=== PATIENT | male | born 1940 | race Caucasian/White ===

== ENCOUNTER → 2023-06-07 07:55 | Outpatient (REF) | payer MEDICARE, OTHER, SELFPAY ==
[2023-06-07 09:32] LABS: % Basophils 0.5 % (0-2); % Eosinophils 2.4 % (0-6); % Immature Granulocytes 0.5 % (0-0.5); % Lymphocytes 32.3 % (20.5-51.1); % Monocytes 10.3 % (1.7-9.3); Absolute Eosinophils 0.2 10^3/uL (0-0.7); Absolute Lymphocytes 2.4 10^3/uL (1.2-3.4); Absolute Monocytes 0.8 10^3/uL (0.1-0.6); Hematocrit 36.1 % (39.0-52.0); Hemoglobin 11.7 g/dL (13.0-18.0); Mean Corp Hgb Conc. 32.4 g/dL (33.0-37.0); Mean Corpuscular Hgb 32.2 pg (27.0-31.0); Mean Corpuscular Volume 99.4 fL (80.0-94.0); Mean Platelet Volume 11.3 fL (7.4-10.4); Nucleated Red Blood Cells % 0 % (-); Platelet Count 176 10^3/uL (130-400); Red Blood Cell Count 3.63 10^6/uL (4.70-6.10); Red Cell Dist. Width 14.6 % (11.5-14.5); White Blood Cell Count 7.4 10^3/uL (4.8-10.8)
[2023-06-07 09:58] LABS: ALT (SGPT) 16 U/L (0-50); AST (SGOT) 21 U/L (17-59); Albumin 4.2 g/dl (3.5-5.0); Alkaline Phosphatase 95 U/L (38-126); Blood Urea Nitrogen 24 mg/dl (9-20); Calcium 9.8 mg/dl (8.4-10.2); Carbon Dioxide 21 mmol/L (22-30); Chloride 104 mmol/L (98-107); Glucose 115 mg/dl (70-99); Potassium 4.4 mmol/L (3.5-5.1); Sodium 138 mmol/L (135-145); Total Bilirubin 0.6 mg/dl (0.2-1.3); Total Cholesterol 158 mg/dl (50-199); Total Protein 6.3 g/dl (6.3-8.2); Triglyceride 153 mg/dl (10-149); Very Low Density Lipoprotein 30 mg/dl (0-30); eGFR > 60.00
[2023-06-07 10:13] LABS: Erythrocyte Sed Rate 18 mm/hour (0-20)
[2023-06-07 10:14] LABS: C-Reactive Protein < 5.00 mg/L (0.0-10.00)
[2023-06-07 10:36] LABS: HDL Cholesterol 74 mg/dl; LDL Cholesterol, Calculated 54 mg/dl
[2023-06-08 19:13] LABS: Hepatitis B Surface Antigen Negative (Negative)
[2023-06-08 19:30] LABS: Hepatitis B Core Ab, Total Negative (Negative); Hepatitis C Antibody Negative (Negative)
[2023-06-10 02:59] LABS: Quantiferon Mitogen minus NIL >10.00 IU/mL; Quantiferon NIL 0.04 IU/mL; Quantiferon Plus TB2 minus NIL 0.01 IU/mL (0.00-0.34); Quantiferon TB Gold Plus Negative (Negative)
== END ==
LOC: REG 07:55
PROVIDERS: ATTENDING PHYSICIAN Internal Medicine; FAMILY PHYSICIAN Internal Medicine
DX: E78.5 Hyperlipidemia, unspecified (principal); K75.9 Inflammatory liver disease, unspecified; M25.551 Pain in right hip; M25.552 Pain in left hip; M35.3 Polymyalgia rheumatica; M48.061 Spinal stenosis, lumbar region without neurogenic claudication; M76.899 Other specified enthesopathies of unspecified lower limb, excluding foot; R70.0 Elevated erythrocyte sedimentation rate; Z22.7 Latent tuberculosis
CPT/HCPCS: 36415; 80053; 80061; 85025; 85652; 86140; 86480; 86704; 86803; 87340

== ENCOUNTER → 2023-07-19 20:05 | Outpatient (REF) | payer MEDICARE, OTHER, SELFPAY | LOC: MRI 20:05 | PROVIDERS: ATTENDING PHYSICIAN Specialist | DX: M54.16 Radiculopathy, lumbar region (principal) | CPT/HCPCS: 72148 ==

== ENCOUNTER → 2023-11-22 11:22 | Outpatient (REF) | payer MEDICARE, OTHER, SELFPAY | LOC: RAD 11:22 | PROVIDERS: ATTENDING PHYSICIAN Registered Nurse Neuroscience; FAMILY PHYSICIAN Internal Medicine | DX: M54.9 Dorsalgia, unspecified (principal) | CPT/HCPCS: 72100 ==

== ENCOUNTER → 2024-01-12 08:20 | Outpatient (REF) | payer MEDICARE, OTHER, SELFPAY ==
[2024-01-12 09:21] LABS: % Basophils 0.5 % (0-2); % Eosinophils 2.2 % (0-6); % Immature Granulocytes 0.5 % (0-0.5); % Lymphocytes 34.8 % (20.5-51.1); % Monocytes 7.5 % (1.7-9.3); % Neutrophils 54.5 % (42.2-75.2); Absolute Eosinophils 0.2 10^3/uL (0-0.7); Absolute Lymphocytes 2.8 10^3/uL (1.2-3.4); Absolute Monocytes 0.6 10^3/uL (0.1-0.6); Absolute Neutrophils 4.3 10^3/uL (1.4-6.5); Hematocrit 39.6 % (39.0-52.0); Hemoglobin 12.6 g/dL (13.0-18.0); Mean Corp Hgb Conc. 31.8 g/dL (33.0-37.0); Mean Corpuscular Volume 97.5 fL (80.0-94.0); Mean Platelet Volume 10.4 fL (7.4-10.4); Nucleated Red Blood Cells % 0 % (-); Platelet Count 230 10^3/uL (130-400); Red Blood Cell Count 4.06 10^6/uL (4.70-6.10); Red Cell Dist. Width 13.2 % (11.5-14.5); White Blood Cell Count 7.9 10^3/uL (4.8-10.8)
[2024-01-12 09:46] LABS: ALT (SGPT) 17 U/L (0-50); AST (SGOT) 20 U/L (17-59); Albumin 4.1 g/dl (3.5-5.0); Alkaline Phosphatase 121 U/L (38-126); Blood Urea Nitrogen 24 mg/dl (9-20); Calcium 9.4 mg/dl (8.4-10.2); Carbon Dioxide 26 mmol/L (22-30); Chloride 104 mmol/L (98-107); Creatine Phosphokinase 57 U/L (55-170); Glucose 126 mg/dl (70-99); HDL Cholesterol 63 mg/dl; LDL Cholesterol, Calculated 82 mg/dl; Potassium 5.1 mmol/L (3.5-5.1); Sodium 141 mmol/L (135-145); Total Bilirubin 0.3 mg/dl (0.2-1.3); Total Cholesterol 170 mg/dl (50-199); Total Protein 6.5 g/dl (6.3-8.2); Triglyceride 127 mg/dl (10-149); Very Low Density Lipoprotein 25 mg/dl (0-30); eGFR > 60.00
[2024-01-12 10:21] LABS: PSA, Total - Screen 6.25 ng/ml (0.0-4.0); TSH Reflex To Free T4 2.72 uIU/ml (0.47-4.68)
[2024-01-12 10:51] LABS: Erythrocyte Sed Rate 21 mm/hour (0-20)
[2024-01-12 11:46] LABS: Glycohemoglobin (HgbA1c) 6.6 % (4.0-5.6)
== END ==
LOC: REG 08:20
PROVIDERS: ATTENDING PHYSICIAN Physician Assistant Surgical; FAMILY PHYSICIAN Internal Medicine
DX: M25.552 Pain in left hip (principal); R97.20 Elevated prostate specific antigen [PSA]; I10 Essential (primary) hypertension; E03.9 Hypothyroidism, unspecified; E78.2 Mixed hyperlipidemia; R73.03 Prediabetes; Z12.5 Encounter for screening for malignant neoplasm of prostate
CPT/HCPCS: 36415; 80053; 80061; 82550; 83036; 84443; 85025; 85652; 86140; G0103

== ENCOUNTER → 2024-01-22 07:41 | Outpatient (REF) | payer MEDICARE, OTHER, SELFPAY | LOC: EMG 07:41 | PROVIDERS: ATTENDING PHYSICIAN Physician Assistant Surgical; FAMILY PHYSICIAN Internal Medicine | DX: M25.551 Pain in right hip (principal); M25.552 Pain in left hip; R20.0 Anesthesia of skin | CPT/HCPCS: 95886; 95910 ==

== ENCOUNTER → 2024-02-27 08:55 | Outpatient (REF) | payer MEDICARE, OTHER, SELFPAY ==
[2024-02-29 13:31] LABS: Lyme Antibody Screen, EIA Negative (Negative)
[2024-03-01 05:17] LABS: Albumin 3.84 g/dL (3.75-5.01); Alpha 1 Globulin 0.33 g/dL (0.19-0.46); Alpha 2 Globulin 0.95 g/dL (0.48-1.05); SPEP IFE Reflex Not Done; Total Protein-Electrophoresis 6.5 g/dL (6.3-8.2)
== END ==
LOC: REG 08:55
PROVIDERS: ATTENDING PHYSICIAN Psychiatry & Neurology Neurology; FAMILY PHYSICIAN Internal Medicine
DX: R41.3 Other amnesia (principal)
CPT/HCPCS: 36415; 84155; 84165; 86618

== ENCOUNTER 2024-05-23 10:37 | Inpatient (IN) | payer MEDICARE, OTHER, SELFPAY ==
[2024-04-30 11:08] LABS: Hematocrit 36.7 % (39.0-52.0); Mean Corp Hgb Conc. 32.7 g/dL (33.0-37.0); Mean Corpuscular Hgb 31.7 pg (27.0-31.0); Mean Corpuscular Volume 97.1 fL (80.0-94.0); Mean Platelet Volume 10.7 fL (7.4-10.4); Platelet Count 267 10^3/uL (130-400); Red Blood Cell Count 3.78 10^6/uL (4.70-6.10); White Blood Cell Count 7.8 10^3/uL (4.8-10.8)
[2024-04-30 11:51] LABS: Glycohemoglobin (HgbA1c) 6.6 % (4.0-5.6)
[2024-04-30 11:59] LABS: ALT (SGPT) 30 U/L (0-50); AST (SGOT) 21 U/L (17-59); Albumin 4.4 g/dl (3.5-5.0); Alkaline Phosphatase 126 U/L (38-126); Blood Urea Nitrogen 30 mg/dl (9-20); Calcium 9.7 mg/dl (8.4-10.2); Carbon Dioxide 21 mmol/L (22-30); Chloride 107 mmol/L (98-107); Glucose 132 mg/dl (70-99); Potassium 4.5 mmol/L (3.5-5.1); Sodium 139 mmol/L (135-145); Total Bilirubin 0.6 mg/dl (0.2-1.3); Total Protein 6.6 g/dl (6.3-8.2); eGFR > 60.00
[2024-04-30 13:27] LABS: Iron 73 ug/dl (49-181)
[2024-04-30 13:37] LABS: Percent Saturation 25 % (20-50); Total Iron Binding Capacity 284 ug/dl (261-462)
[2024-04-30 14:22] VITALS: BMI 22.8
[2024-04-30 14:34] LABS: Folate 17.1 ng/ml (2.76-20); Vitamin B12 383 pg/ml (239-931)
[2024-04-30 17:08] VITALS: BMI 22.8
[2024-05-01 11:00] LABS: Ferritin 37.3 ng/ml (17.9-464.0)
[2024-05-23] VITALS (17 sets, daily range): BP systolic 103–137; BP diastolic 44–80; BMI 22.8; BMI 24.8
[2024-05-23] MEDS: CELEBREX 200 MG PO (11:26)
[2024-05-23] MEDS: NORMOSOL-R/PLASMALYTE-A 1000 IV ×2 (11:26→16:30)
[2024-05-23] MEDS: TYLENOL 650 MG PO ×3 (11:26→22:24)
--- NOTE | 2024-05-23 14:12 | W.DS.TRANS ---
DC Summary - Clinical Unit Educator
-
Discharge Instructions:
Discharge Diagnosis/Procedures R KEATON 05/23/24
Diet As tolerated,Diabetic, Carb Controlled
Activity With Walker
Driving Restrictions No driving
Bathing Restrictions OK to Shower
Other Services PT,VN,OT
Instructions:
Stand-Alone Forms: Total Hip/Knee Replacement D/C
Changes to Home Medications: Yes
Discharge Medications:
DC Medications w/original date entered in [facility]
amlodipine 10 mg tablet 10 mg PO DAILY 09/06/12
levothyroxine 125 mcg tablet 125 mcg PO DAILY 09/06/12
losartan 100 mg tablet (Cozaar) 100 mg PO DAILY 09/06/12
bupropion HCl 150 mg tablet,12 hr sustained-release 450 mg PO DAILY 12/14/20
methylphenidate HCl 10 mg tablet 60 mg PO DAILY 12/14/20
tamsulosin 0.4 mg capsule 0.4 mg PO HS #3 caps 12/17/20
polyethylene glycol 3350 17 gram oral powder packet (Miralax) 17 g PO DAILY 04/29/24
pregabalin 100 mg capsule (Lyrica) 100 mg PO DAILY 04/29/24
vit C 250 mg-vit E 90 mg-zinc 40 mg-copper 1 [id number] capsule (PreserVision AREDS-2) 1 tab PO BID 04/29/24
Vitamin D3 1 dose PO DAILY 04/30/24
mupirocin 2 % topical ointment 1 applic intranasal BID #1 tube 04/30/24
acetaminophen 500 mg tablet (Tylenol Extra Strength) 1,000 mg (2 x 500 mg) PO QID #0 tabs 05/23/24
aspirin 325 mg tablet 325 mg PO DAILY blood clot prevention #1 tab 05/23/24
docusate sodium 100 mg capsule (Colace) 100 mg PO BID stool softner #1 cap 05/23/24
famotidine 20 mg tablet 20 mg PO HS GI prophylaxis #30 tabs 05/23/24
gabapentin 300 mg capsule 300 mg PO HS sleep/pain #10 caps 05/23/24
magnesium hydroxide 400 mg/5 mL oral suspension (Milk of Magnesia) 30 ml PO HS PRN Constipation #1 mL 05/23/24
melatonin 1 mg tablet 1 mg PO HS PRN sleep 05/23/24
meloxicam 15 mg tablet 15 mg PO DAILY anti-inflammatory #14 tabs 05/23/24
ondansetron 4 mg disintegrating tablet 4 mg PO Q6H PRN n/v #20 tabs 05/23/24
sennosides 8.6 mg tablet (Senokot) 17.2 mg (2 x 8.6 mg) PO BID laxative #2 tabs 05/23/24
tramadol 50 mg tablet 50 mg PO Q6H PRN 1 tab moderate pain, 2 if severe #30 tabs 05/23/24
Home Medication Changes
mupirocin 2 % topical ointment 1 applic intranasal BID #1 tube 04/30/24
acetaminophen 500 mg tablet (Tylenol Extra Strength) 1,000 mg (2 x 500 mg) PO QID #0 tabs 05/23/24
aspirin 325 mg tablet 325 mg PO DAILY blood clot prevention #1 tab 05/23/24
docusate sodium 100 mg capsule (Colace) 100 mg PO BID stool softner #1 cap 05/23/24
famotidine 20 mg tablet 20 mg PO HS GI prophylaxis #30 tabs 05/23/24
gabapentin 300 mg capsule 300 mg PO HS sleep/pain #10 caps 05/23/24
magnesium hydroxide 400 mg/5 mL oral suspension (Milk of Magnesia) 30 ml PO HS PRN Constipation #1 mL 05/23/24
melatonin 1 mg tablet 1 mg PO HS PRN sleep 05/23/24
meloxicam 15 mg tablet 15 mg PO DAILY anti-inflammatory #14 tabs 05/23/24
ondansetron 4 mg disintegrating tablet 4 mg PO Q6H PRN n/v #20 tabs 05/23/24
sennosides 8.6 mg tablet (Senokot) 17.2 mg (2 x 8.6 mg) PO BID laxative #2 tabs 05/23/24
tramadol 50 mg tablet 50 mg PO Q6H PRN 1 tab moderate pain, 2 if severe #30 tabs 05/23/24
Pending Results: No
[2024-05-23] MEDS: DILAUDID 0.5 MG IV (15:52)
--- NOTE | 2024-05-23 16:04 | OR.RPT ---
Operative Report
Operative Report
Orthopaedic Surgery Operative Note
DATE OF OPERATION: 05/23/2024
PREOPERATIVE DIAGNOSES: Right hip osteoarthritis, right lateral thigh hematoma
POSTOPERATIVE DIAGNOSES: Same
OPERATION PERFORMED: Right total hip arthroplasty; right lateral thigh hematoma evacuation with debridement and irrigation
SURGEON: Feliciano Fallon MD
HOME CARE PROVIDER: Shen Sanchez PA-C who helped with patient and limb positioning and retraction
ANESTHESIA: Spinal
COMPLICATIONS: None.
ESTIMATED BLOOD LOSS: 50 mL.
DRAINS: None
SPECIMEN: x1 pathology
FINDINGS: Full thickness degenerative changes to the femoral head, hematoma between subcutaneous skin and ITB with pseudocapsule
IMPLANTS:
Minal Trilogy Acetabular Shell, cluster hole, size 52
Minal Trilogy Highly Crosslinked PE Liner, neutral
Minal Heritage stem, size 13 with extended offset with distal centralizer
DJO bone cement; small cement restrictor
Biolox Ceramic Head, size 36mm -3.5mm
INDICATIONS: The patient presented to my office with debilitating right hip pain due to osteoarthritis. We reviewed the natural history of this problem, as well as the risks, benefits, and alternatives of various treatment options. The patient
exhausted all nonoperative treatment options and wished to proceed with hip replacement surgery. The patient understood the risks which included, but were not limited to, bleeding, infection, failure to relieve pain, more pain than preop, damage to
blood vessels and nerves, need for reoperation, mechanical failure of the implants, wound healing problems, stiffness, instability, blood clot, pulmonary embolism, myocardial infarction, pneumonia, arrhythmia, CVA, and . The patient accepted
these risks and wished to proceed. All questions were answered, and informed consent was obtained. Prior the surgery, the patient had a fall and was noted to have hematoma about lateral thigh. It failed to resolves spontaneously, so we discussed
evaucation since it was overlying the surgical incision site.
PROCEDURE IN DETAIL: The patient was identified in the preoperative holding area. The right hip was identified as the operative site. The patient was taken in the operating room and transferred to the operative table. Spinal anesthesia was
performed. IV antibiotics and tranexamic acid were administered. The patient was placed in the lateral position with Stulberg hip positioners. Axillary roll was placed. The down leg was well padded. All bony prominences were well padded. The
operative limb was prepped and draped in the usual sterile fashion.
Time out was performed. The hematoma site was marked circumferentially which was about 10cm ovoid shape overlying the greater trochanter. A posterolateral approach to the hip was used. The skin incision was centered over the greater trochanter. This
was taken down sharply through subcutaneous tissues. Meticulous hemostasis was achieved throughout the case with electrocautery. Low viscocity serosang fluid was encountered. Pseudocapsule was noted about the hematoma, and this was excised with a
anderson scissors after dissecting from underlying ITB and subcutaneous fat. This was excisional debridement with anderson scissors. A specimen was sent for pathology. We split the fascia walter in line with skin incision. I split the gluteus david bluntly.
We cauterized all crossing vessels as we split it. I palpated the sciatic nerve and made sure it was well posterior in the operative field. It was protected throughout the case.
I performed a partial bursectomy to identify the short external rotators. The gluteus medius and minimus were identified and retracted anteriorly. I incised the piriformis tendon and conjoint tendon at their insertions. These were tagged for later
repair. I then performed a trapezoidal capsulotomy. The edges were tagged for later repair. I referenced the cut edge of the capsular flap to 2 fixed points on the greater trochanter for assistance with recreation of limb length and offset. I then
dislocated the hip posteriorly. I performed a femoral neck osteotomy approximately 5mm above the lesser trochanter, as per preoperative templating. The femoral head measured 57 mm in outer diameter. The distance between the neck cut and the center
of the femoral head was measured to be 30mm. I placed a curve hohmann retractor over the anterior lip of the acetabulum between the labrum and the anterior hip capsule. A second retractor was placed inferiorly just distal to the transverse
acetabular ligament. Circumferential view of the acetabulum was achieved. I incised the labrum and pulvinar with electrocautery. I started with a 47mm reamer and reamed down to the medial wall. I then sequentially reamed up to a 51mm reamer. This
gave a nice bed of bleeding bone with excellent column support anteriorly and posteriorly. I impacted the acetabular shell in approximately 40 degrees of abduction and 20 degrees of anteversion. I matched the anteversion of the transverse acetabular
ligament. I also made sure that the anterior rim of the socket was not proud of the anterior wall to minimize the chance of iliopsoas tendinitis. I confirmed the cup was well-seated. I then impacted a neutral liner and confirmed it was well seated
with the locking mechanism.
Attention was turned to the femur. Box osteotome and Charnley awe were used to open the canal. The femur was sequentially broached to size 13 which had appropriate fit and fill. A trial head was placed with extended offset neck and the hip was
reduced. Leg length and offset were checked and found to be appropriate. The hip was taken through complete range of motion and found to be stable in extension, the position of sleep, and at 90 degrees of flexion and internal rotation.
Trials were removed and the femoral canal was prepared with irrigation and ribbon gauze packing sequentially. A cement restrictor was placed into the femoral canal 1cm distal to the tip of the femoral stem. This was measured off the trial femoral
stem. Once the femoral canal was prepared, the cement was mixed. Once doughy in consistency, the cement was pressurized into the canal with a cement gun. The stem was then carefully inserted into the canal with care to minimize rotation or
micromotion. Excess cement was removed. Once the cement was polymerized, the joint was irrigated copiously. The acetabular component was inspected to be free of cement particles and other debris. The final head was impacted onto clean and dry
trunion. Leg length and stability were checked again and found to be acceptable. The sciatic nerve was inspected and noted to be free of tension and uninjured.
A dilute betadine soak was performed for approximately 3 minutes, and then the hip was copiously irrigated. I repaired the capsule, piriformis, and conjoint tendon with #2 Ethibond to drill holes in the greater trochanter. Local anesthetic was
injected. The fascia walter was closed with #1 PDS in running fashion. There was noted to be redundant skin where the hematoma had stretched the subcutaneous tissues, so a portion was ellipsed out. The subcutaneous tissues were closed with 2-0 PDS in
running fashion. The skin was reapproximated with 3-0 Monocryl subcuticular suture. I placed a Prineo dressing followed by a Mepilex Ag dressing. The patient awoke from anesthesia without difficulty. Sponge and instrument counts were correct x2 at
the end of the case. Leg lengths were checked on the hospital bed and noted to be equal.
I was present and participated in the entire procedure. The patient was sent to the recovery room in stable condition.
Sebastian Fallon MD
[2024-05-23 16:10] LABS: Glucose - Point of Care 156 mg/dl (70-99)
[2024-05-23] MEDS: ULTRAM 50 MG PO (16:23)
[2024-05-23] MEDS: WELLBUTRIN SR (12 hour sustained release) PO (17:56)
[2024-05-23] MEDS: RITALIN PO (17:56)
[2024-05-23] MEDS: ASPIRIN 325 MG PO (17:59)
[2024-05-23 18:11] LABS: Glucose - Point of Care 156 mg/dl (70-99)
[2024-05-23] MEDS: LANTUS SC (18:25)
[2024-05-23] MEDS: NOVOLOG FLEXPEN-MODERATE RESISTANCE SC (18:26)
[2024-05-23] MEDS: ANCEF 5 IV (20:21)
[2024-05-23] MEDS: SYNTHROID PO (22:09)
[2024-05-23] MEDS: COLACE 100 MG PO (22:23)
[2024-05-23] MEDS: LYRICA 100 MG PO (22:23)
[2024-05-23] MEDS: BACTROBAN 2% OINTMENT 1 APPLIC NASAL (22:23)
[2024-05-23] MEDS: SENOKOT 17.2 MG PO (22:23)
[2024-05-23] MEDS: TORADOL 15 MG IV (22:23)
[2024-05-23] MEDS: PROTONIX 40 MG PO (22:24)
[2024-05-23] MEDS: FLOMAX 0.4 MG PO (22:24)
[2024-05-23] MEDS: MELATONIN 3 MG PO (22:24)
[2024-05-23 22:37] LABS: Glucose - Point of Care 193 mg/dl (70-99)
[2024-05-23] MEDS: TYLENOL PO (23:04)
[2024-05-24 01:01] VITALS: BP 119/72
--- NOTE | 2024-05-24 02:23 | PTCARENOTE ---
Rec'd pt. out of PACU this shift awake and alert, oriented but forgetful. Vitals stable, right hip surgical dressing CDI with good peripheral circulation/sensation assessed. Pt. changes position constantly independently without difficulty.
Complaining of occasional mild to moderate pain at surgical site, Tylenol and Toradol given with adequate relief obtained. Pt. oriented to room and plan of care discussed, understanding verbalized. Fall precautions initiated, bed alarm on.
Currently sleeping.
[2024-05-24 03:42] VITALS: BP 120/71
[2024-05-24] MEDS: ANCEF 5 IV (04:00)
[2024-05-24] MEDS: TYLENOL 650 MG PO ×3 (04:00→12:32)
[2024-05-24] MEDS: SYNTHROID 125 MCG PO (04:02)
[2024-05-24 07:22] LABS: Glucose - Point of Care 143 mg/dl (70-99)
[2024-05-24 07:30] VITALS: BP 118/60
[2024-05-24] MEDS: WELLBUTRIN SR (12 hour sustained release) 450 MG PO (08:16)
[2024-05-24] MEDS: NOVOLOG FLEXPEN-MODERATE RESISTANCE SC (08:16)
[2024-05-24] MEDS: DECADRON 4 MG IV (08:17)
[2024-05-24] MEDS: LYRICA 100 MG PO (08:18)
[2024-05-24] MEDS: RITALIN 60 MG PO (08:18)
[2024-05-24] MEDS: ASPIRIN 325 MG PO (08:18)
[2024-05-24] MEDS: TORADOL 15 MG IV (08:19)
[2024-05-24] MEDS: MOBIC 15 MG PO (08:19)
[2024-05-24] MEDS: SENOKOT 17.2 MG PO (08:19)
[2024-05-24] MEDS: COLACE 100 MG PO (08:19)
[2024-05-24] MEDS: LANTUS 0.04 UNITS SC (08:20)
[2024-05-24] MEDS: BACTROBAN 2% OINTMENT 1 APPLIC NASAL (08:20)
--- NOTE | 2024-05-24 10:00 | W.PN.ORTHO ---
Today's Communication / Plan
-
d/c
Assessment
.
Distal Motor Intact: Yes
Dressing:
Clean, dry and intact.
Assessment:
Ambulatory dysfunction/hx falls with pre-op hematoma--hgb stable
Plan
.
Surgery / Date: R KEATON 05/23/24
DVT Prophylaxis: Aspirin
Activity:
Out of bed.
PT/OT
Discharge Plan: Home w/ VN
Subjective
.
.:
Patient resting comfortably.
Vital Signs and Labs
.
Vital Signs and Labs:
Lab Results
04/30/24 10:24
04/30/24 10:24
Temp Pulse Resp BP Pulse Ox
97.9 F 99 16 118/67 99
05/24/24 07:30 05/24/24 07:30 05/24/24 07:30 05/24/24 08:19 05/24/24 07:30
Non-invasive Hgb result: 12
Physical Exam
-
HEENT: No pallor, cyanosis, or jaundice. Throat clear.
NECK: Supple. No JVD.
RESPIRATORY: Lungs clear to auscultation.
CVS: S1, S2 normal. RRR.� No murmur, rub or gallop.
ABDOMEN: Soft, non-tender. No distension. BS+/normal.
EXTREMITIES: strength equal, no calf pain with palpation
CENTRAL OFFICE EQUIPMENT ENGINEER: AOx3. No focal deficits. supply analyst grossly intact
[2024-05-24 11:32] VITALS: BP 109/49; PULSE 68; O2SAT 97
[2024-05-24 12:17] VITALS: BP 109/56; PULSE 76; O2SAT 98
[2024-05-24 12:43] LABS: Glucose - Point of Care 154 mg/dl (70-99)
[2024-05-24] MEDS: NOVOLOG FLEXPEN-MODERATE RESISTANCE 1 UNITS SC (13:03)
--- NOTE | 2024-05-24 13:10 | CM ---
Initial assessment completed
Met with pt and his at bedside
Lives in a 2 story home; [address]; bath on
Forgetful, independent with ADL's, ambulates with rolling walker or cane
DME - single point cane, rolling walker, raised toilet seat, shower chair
SNF/HH - no past hx
Has ride at d/c
PCP - Benito Hinojosa
Pharm - [facility]
Has outpatient appt on on Monday - to transport
TT sent to [facility] Liaison - jose Shaw requesting home visit over weekend. Liaison to see pt
Discharge plan reviewed with pts daughter Sol
Plan - anticipate home with outpatient PT
--- NOTE | 2024-05-24 13:20 | VNURNOTE ---
Home health liaison met with patient to discuss [facility] services. was placed on speaker phone during conversation. Per : Patient's outpatient therapy appointment is set up for 05/27. Home health liaison suggested postponing the appointment for
at least 1-2 weeks and having therapy at home temporarily prior to starting OP. Patient and spouse not interested in delaying OP therapy apt. Spouse states she is comfortable taking patient home and driving him to OP on 05/27. Patient will not receive
[facility] services at discharge. CM made aware.
[2024-05-24 15:53] VITALS: BP 120/64
== END 2024-05-24 16:02 | disposition home or self-care (01) | DRG 465 ==
LOC: 2 SOUTH 10:37
PROVIDERS: ADMITTING PHYSICIAN Orthopaedic Surgery; FAMILY PHYSICIAN Internal Medicine; REFERRING PHYSICIAN Internal Medicine Cardiovascular Disease
PROC: 0MBL0ZZ Excision of Right Hip Bursa and Ligament, Open Approach (ICD-10-PCS; 2024-05-23)
PROC: 0JCL0ZZ Extirpation of Matter from Right Upper Leg Subcutaneous Tissue and Fascia, Open Approach (ICD-10-PCS; 2024-05-23)
PROC: 0JBL0ZZ Excision of Right Upper Leg Subcutaneous Tissue and Fascia, Open Approach (ICD-10-PCS; 2024-05-23)
PROC: 0SR9049 Replacement of Right Hip Joint with Ceramic on Polyethylene Synthetic Substitute, Cemented, Open Approach (ICD-10-PCS; 2024-05-23)
DX: M16.11 Unilateral primary osteoarthritis, right hip (principal); I10 Essential (primary) hypertension; G47.33 Obstructive sleep apnea (adult) (pediatric); E11.9 Type 2 diabetes mellitus without complications; K21.9 Gastro-esophageal reflux disease without esophagitis; K44.9 Diaphragmatic hernia without obstruction or gangrene; K22.2 Esophageal obstruction; R41.3 Other amnesia; M48.062 Spinal stenosis, lumbar region with neurogenic claudication; M06.9 Rheumatoid arthritis, unspecified; M35.3 Polymyalgia rheumatica; E03.9 Hypothyroidism, unspecified; D64.9 Anemia, unspecified; N40.1 Benign prostatic hyperplasia with lower urinary tract symptoms; F32.A Depression, unspecified; F90.9 Attention-deficit hyperactivity disorder, unspecified type; G47.00 Insomnia, unspecified; S70.11XA Contusion of right thigh, initial encounter; W19.XXXA Unspecified fall, initial encounter; Y93.9 Activity, unspecified; Y92.9 Unspecified place or not applicable; Z91.81 History of falling; Z85.72 Personal history of non-Hodgkin lymphomas; Z86.0100 Personal history of colon polyps, unspecified; Z87.19 Personal history of other diseases of the digestive system; Z87.11 Personal history of peptic ulcer disease; Z86.73 Personal history of transient ischemic attack (TIA), and cerebral infarction without residual deficits; Z79.890 Hormone replacement therapy; Z88.0 Allergy status to penicillin
CPT/HCPCS: 88304; 36415; 73502; 80053; 82607; 82728; 82746; 82962; 83036; 83540; 83550; 85027; 87070; 97110; 97116; 97163; 97166; 97530; 97535; C1713; C1776

== ENCOUNTER → 2024-08-09 08:37 | Outpatient (REF) | payer MEDICARE, OTHER, SELFPAY ==
[2024-08-09 09:55] LABS: Glycohemoglobin (HgbA1c) 6.5 % (4.0-5.6)
[2024-08-09 10:06] LABS: Microalbumin, Random Urine 0.7 mg/dl (0.6-1.7); Microalbumin/creatinine Ratio 9.5 mg/g
[2024-08-09 10:13] LABS: ALT (SGPT) 13 U/L (0-50); AST (SGOT) 14 U/L (17-59); Albumin 4.1 g/dl (3.5-5.0); Alkaline Phosphatase 110 U/L (38-126); Blood Urea Nitrogen 24 mg/dl (9-20); Calcium 9.4 mg/dl (8.4-10.2); Carbon Dioxide 22 mmol/L (22-30); Chloride 108 mmol/L (98-107); Glucose 121 mg/dl (70-99); HDL Cholesterol 61 mg/dl; LDL Cholesterol, Calculated 93 mg/dl; Potassium 4.8 mmol/L (3.5-5.1); Sodium 137 mmol/L (135-145); Total Bilirubin 0.7 mg/dl (0.2-1.3); Total Cholesterol 179 mg/dl (50-199); Total Protein 6.4 g/dl (6.3-8.2); Triglyceride 129 mg/dl (10-149); Very Low Density Lipoprotein 25 mg/dl (0-30); eGFR > 60.00
== END ==
LOC: REG 08:37
PROVIDERS: ATTENDING PHYSICIAN Internal Medicine
DX: E11.9 Type 2 diabetes mellitus without complications (principal)
CPT/HCPCS: 36415; 80053; 80061; 82043; 82570; 83036

== ENCOUNTER → 2024-08-15 14:21 | Outpatient (REF) | payer MEDICARE, OTHER, SELFPAY | LOC: RAD 14:21 | PROVIDERS: ATTENDING PHYSICIAN Internal Medicine | DX: R06.00 Dyspnea, unspecified (principal); I34.0 Nonrheumatic mitral (valve) insufficiency; E11.9 Type 2 diabetes mellitus without complications | CPT/HCPCS: 71275; Q9967 ==

== ENCOUNTER → 2024-08-22 12:54 | Outpatient (REF) | payer MEDICARE, OTHER, SELFPAY | LOC: RCS 12:54 | PROVIDERS: ATTENDING PHYSICIAN Internal Medicine Cardiovascular Disease; FAMILY PHYSICIAN Internal Medicine | DX: Z01.818 Encounter for other preprocedural examination (principal); Z01.810 Encounter for preprocedural cardiovascular examination; I10 Essential (primary) hypertension; E78.00 Pure hypercholesterolemia, unspecified; I45.10 Unspecified right bundle-branch block | CPT/HCPCS: 93306 ==

== ENCOUNTER → 2024-09-13 09:13 | Outpatient (REF) | payer MEDICARE, OTHER, SELFPAY ==
[2024-09-13 10:14] LABS: Hematocrit 37.3 % (39.0-52.0); Hemoglobin 12.4 g/dL (13.0-18.0); Mean Corp Hgb Conc. 33.2 g/dL (33.0-37.0); Mean Corpuscular Volume 95.6 fL (80.0-94.0); Nucleated Red Blood Cells % 0 % (-); Platelet Count 178 10^3/uL (130-400); Red Cell Dist. Width 13.7 % (11.5-14.5)
[2024-09-13 10:42] LABS: Iron 117 ug/dl (49-181)
[2024-09-13 10:53] LABS: Total Iron Binding Capacity 289 ug/dl (261-462)
[2024-09-13 11:00] LABS: Vitamin D, 25-OH*** 47.8 ng/mL (30-80)
[2024-09-13 11:43] LABS: CRP, Ultra Sensitive 2.56 mg/L (0.30-5.00)
[2024-09-13 11:50] LABS: Folate 11.3 ng/ml (2.76-20); Vitamin B12 267 pg/ml (239-931)
[2024-09-15 08:33] LABS: Copper, Serum 100.6 ug/dL (70.0-140.0)
[2024-09-15 19:15] LABS: SSA 52 (Ro)(ENA) Ab, IgG 1 AU/mL (0-40); SSA 60 (Ro)(ENA) Ab, IgG 0 AU/mL (0-40); SSB (La)(ENA) Ab, IgG 1 AU/mL (0-40)
== END ==
LOC: REG 09:13
PROVIDERS: ATTENDING PHYSICIAN Psychiatry & Neurology Neurology; FAMILY PHYSICIAN Internal Medicine; OTHER PHYSICIAN Internal Medicine Cardiovascular Disease
DX: M54.17 Radiculopathy, lumbosacral region (principal); R41.3 Other amnesia; R20.0 Anesthesia of skin; M47.816 Spondylosis without myelopathy or radiculopathy, lumbar region; I10 Essential (primary) hypertension; I45.10 Unspecified right bundle-branch block; R06.02 Shortness of breath; Z79.899 Other long term (current) drug therapy; E53.1 Pyridoxine deficiency
CPT/HCPCS: 36415; 82085; 82306; 82525; 82550; 82607; 82652; 82746; 83540; 83550; 83880; 84207; 84425; 84443; 84446; 85025; 85652; 86141; 86235

== ENCOUNTER → 2024-10-25 07:43 | Outpatient (REF) | payer MEDICARE, OTHER, SELFPAY | LOC: HWRCS 07:43 | PROVIDERS: ATTENDING PHYSICIAN Internal Medicine Cardiovascular Disease; FAMILY PHYSICIAN Internal Medicine | DX: I45.10 Unspecified right bundle-branch block (principal); R06.02 Shortness of breath | CPT/HCPCS: 78452; 93017; A9500; J2785 ==

== ENCOUNTER → 2024-12-13 16:47 | Outpatient (REF) | payer MEDICARE, OTHER, SELFPAY ==
[2024-12-13 17:48] LABS: Blood Urea Nitrogen 29 mg/dl (9-20); Calcium 9.4 mg/dl (8.4-10.2); Carbon Dioxide 24 mmol/L (22-30); Chloride 107 mmol/L (98-107); Glucose 158 mg/dl (70-99); Potassium 4.0 mmol/L (3.5-5.1); Sodium 136 mmol/L (135-145); eGFR > 60.00
== END ==
LOC: REG 16:47
PROVIDERS: FAMILY PHYSICIAN Internal Medicine
DX: I10 Essential (primary) hypertension (principal)
CPT/HCPCS: 36415; 80048

== ENCOUNTER → 2025-01-17 09:44 | Outpatient (REF) | payer MEDICARE, OTHER, SELFPAY ==
[2025-01-17 10:33] LABS: Hematocrit 36.5 % (39.0-52.0); Hemoglobin 11.7 g/dL (13.0-18.0); Mean Corp Hgb Conc. 32.1 g/dL (33.0-37.0); Mean Corpuscular Volume 96.6 fL (80.0-94.0); Nucleated Red Blood Cells % 0 % (-); Platelet Count 224 10^3/uL (130-400); Red Cell Dist. Width 13.3 % (11.5-14.5)
[2025-01-17 10:57] LABS: ALT (SGPT) 17 U/L (0-50); AST (SGOT) 18 U/L (17-59); Albumin 4.0 g/dl (3.5-5.0); Alkaline Phosphatase 110 U/L (38-126); Blood Urea Nitrogen 26 mg/dl (9-20); Calcium 9.4 mg/dl (8.4-10.2); Carbon Dioxide 26 mmol/L (22-30); Chloride 106 mmol/L (98-107); Glucose 123 mg/dl (70-99); HDL Cholesterol 61 mg/dl; LDL Cholesterol, Calculated 104 mg/dl; Potassium 4.4 mmol/L (3.5-5.1); Sodium 135 mmol/L (135-145); Total Protein 6.7 g/dl (6.3-8.2); Very Low Density Lipoprotein 25 mg/dl (0-30); eGFR 59.63
[2025-01-17 11:16] LABS: Glycohemoglobin (HgbA1c) 6.6 % (4.0-5.9)
[2025-01-17 11:35] LABS: PSA, Total - Diagnostic 6.82 ng/ml (0.0-4.0)
== END ==
LOC: REG 09:44
PROVIDERS: FAMILY PHYSICIAN Internal Medicine
DX: I10 Essential (primary) hypertension (principal); E11.9 Type 2 diabetes mellitus without complications; E03.9 Hypothyroidism, unspecified; R97.20 Elevated prostate specific antigen [PSA]
CPT/HCPCS: 36415; 80053; 80061; 83036; 84153; 84443; 85025